=== PATIENT | female | born 1990 | race Caucasian/White ===

== ENCOUNTER 2019-05-08 07:30 | Observation (INO) | payer MEDICAID ==
[~2019-05-08] VITALS: Ht 172.7 cm; Wt 99.8 kg
[2019-05-08] MEDS ORDERED: ONDANSETRON HCL 4MG/2ML INJ IV ONE (08:15)
[2019-05-08] MEDS ORDERED: DEXT 5%/LACTATED RINGERS 1,000 ML IV SCH (08:15)
[2019-05-08 08:51] LABS: BASOPHILS % 0.1 % (0.0-2.0); HEMATOCRIT. 36.6 % (36.0-48.0); HEMOGLOBIN. 12.3 g/dL (12.0-16.0); LYMPHOCYTES % 12.1 % (20.0-50.0); MEAN CORPUSCULAR HEMOGLOBIN 27.8 pg (28.0-32.0); MEAN CORPUSCULAR VOLUME 82.4 fL (81.0-99.0); MEAN PLATELET VOLUME 8.2 fl (7.4-10.4); MONOCYTES % 4.1 % (2.0-8.0); NEUTROPHILS % 83.7 % (40.0-76.0); PLATELET 355 x1000/uL (130-400); RED BLOOD CELL COUNT 4.44 mill/uL (4.2-5.4); RED CELL DISTRIBUTION WIDTH 14.2 % (11.6-14.6)
[2019-05-08 08:55] LABS: CHLORIDE 102 mEq/L (98-107)
[2019-05-08 09:05] LABS: D-DIMER 1.91 mg/L FEU (<0.50); PROTHROMBIN TIME 9.9 sec (9.6-11.0)
[2019-05-08 11:25] LABS: HEPATITIS B SURFACE ANTIGEN NEGATIVE
== END 2019-05-08 10:00 | disposition home or self-care (01) ==
LOC: 8 EST LDRP 07:30
PROVIDERS: ADMIT Obstetrics & Gynecology; ATTEND Obstetrics & Gynecology
DX: O21.2 Late vomiting of pregnancy (principal); Z3A.32 32 weeks gestation of pregnancy
CPT/HCPCS: 36415; 80053; 84550; 85025; 85379; 85384; 85610; 85730; 86592; 86703; 86762; 86850; 86900; 86901; 87340; 96374; 99281; G0378; J2405; 96360; 96361

== ENCOUNTER 2019-06-15 22:50 | Inpatient (IN) | payer MEDICAID ==
[~2019-06-15] VITALS: Ht 172.7 cm; Wt 99.8 kg
[2019-06-16] MEDS: LACTATED RINGERS 1,000 ML IV SCH ×2 (00:26→01:16)
[2019-06-16 00:28] LABS: CLARITY URINE TURBID (CLEAR); COLOR URINE YELLOW (YELLOW); KETONES URINE NEGATIVE (NEGATIVE); LEUKOCYTE ESTERASE URINE TRACE (NEGATIVE); NITRITE URINE NEGATIVE (NEGATIVE); OCCULT BLOOD URINE NEGATIVE (NEGATIVE); PH URINE 6.5 (4.5-8.0); PROTEIN URINE NEGATIVE (NEGATIVE); SPECIFIC GRAVITY URINE 1.018 (1.005-1.030); UROBILINOGEN URINE 0.2 E.U./dL (0.2-1.0)
[2019-06-16] MEDS ORDERED: PNV1TABL59 PO (00:28)
[2019-06-16 00:33] LABS: CHLORIDE 109 mEq/L (98-107)
[2019-06-16 00:40] LABS: *AMPHETAMINES SCREEN URINE NEGATIVE (NEGATIVE); *BARBITURATES SCREEN URINE NEGATIVE (NEGATIVE); *BENZODIAZEPINES SCREEN URINE NEGATIVE (NEGATIVE); *COCAINE SCREEN URINE NEGATIVE (NEGATIVE); METHADONE URINE SCREEN NEGATIVE (NEGATIVE); OPIATES URINE SCREEN NEGATIVE (NEGATIVE)
[2019-06-16 00:40] LABS: BASOPHILS % 0.2 % (0.0-2.0); EOSINOPHILS % 0.2 % (0.0-5.0); HEMOGLOBIN. 12.6 g/dL (12.0-16.0); LYMPHOCYTES % 22.1 % (20.0-50.0); MEAN CORPUSCULAR HEMOGLOBIN 26.8 pg (28.0-32.0); MEAN CORPUSCULAR VOLUME 80.8 fL (81.0-99.0); MONOCYTES % 7.2 % (2.0-8.0); NEUTROPHILS % 70.3 % (40.0-76.0); PLATELET 354 x1000/uL (130-400); RED BLOOD CELL COUNT 4.71 mill/uL (4.2-5.4); RED CELL DISTRIBUTION WIDTH 14.3 % (11.6-14.6)
[2019-06-16 00:41] LABS: PHENCYCLIDINE URINE SCREEN NEGATIVE (NEGATIVE)
[2019-06-16 00:54] LABS: INR 0.9; PARTIAL THROMBOPLASTIN TIME 23.6 sec (23.4-31.0); PROTHROMBIN TIME 9.4 sec (9.6-11.0)
[2019-06-16 00:57] LABS: CANNABINOID URINE SCREEN PRESUMTIVE POSITIVE (NEGATIVE)
[2019-06-16] MEDS ORDERED: LACTATED RINGERS 1,000 ML IV SCH (01:33)
[2019-06-16] MEDS ORDERED: MAGNESIUM 4 G PREMIX 100 ML IV NR (01:45)
[2019-06-16] MEDS ORDERED: CARBOPROST TROMETHAMINE 250 MCG/ML AMPUL IM PRN (01:45)
[2019-06-16] MEDS ORDERED: MISOPROSTOL 100MCG TABLET VG SCH (01:45)
[2019-06-16] MEDS ORDERED: METHYLERGONOVINE MALEATE 0.2 MG/ML IM PRN (01:45)
[2019-06-16] MEDS ORDERED: NALOXONE HCL 0.4 MG/ML 1ML VIAL IM PRN (01:45)
[2019-06-16] MEDS ORDERED: HYDRALAZINE 20MG/ML VIAL IV PRN (01:45)
[2019-06-16] MEDS ORDERED: LABETALOL HCL 5MG/ML VIAL 20ML IV PRN ×3 (01:45)
[2019-06-16] MEDS ORDERED: CITRIC ACID/SODIUM CITRATE SOLN 30ML UDC PO ONE (02:15)
[2019-06-16] MEDS ORDERED: OXYTOCIN 10 UNITS/ML 1ML ONE (02:20)
[2019-06-16] MEDS ORDERED: EPHEDRINE SULFATE 50MG/ML VIAL ONE (02:20)
[2019-06-16] MEDS ORDERED: MORPHINE SULFATE/PF 1MG/ML 10ML AMP ONE (02:20)
[2019-06-16] MEDS ORDERED: ONDANSETRON HCL 4MG/2ML INJ ONE (02:20)
[2019-06-16] MEDS ORDERED: FENTANYL CITRATE/PF 50MCG/ML 2ML VIAL ONE (02:20)
[2019-06-16] MEDS ORDERED: CEFAZOLIN SODIUM 1000MG/VIAL ONE (02:20)
[2019-06-16] MEDS ORDERED: GLYCOPYRROLATE 0.2 MG/ML 2ML VIAL ONE (02:20)
[2019-06-16] MEDS ORDERED: METOCLOPRAMIDE HCL 10MG/2ML VIAL ONE (02:20)
[2019-06-16] MEDS: MAGNESIUM SULFATE 20 GM in DEXT 5% WATER 460 ML IV SCH (02:24)
[2019-06-16] MEDS ORDERED: SODIUM CHLORIDE 0.9% 10ML VIAL ONE (02:46)
[2019-06-16] MEDS ORDERED: MIDAZOLAM HCL 2 MG/2 ML VIAL ONE (03:27)
[2019-06-16 03:32] LABS: HEPATITIS B SURFACE ANTIGEN NEGATIVE
[2019-06-16] MEDS ORDERED: DIPHENHYDRAMINE 50MG/ML VIAL ONE (03:33)
[2019-06-16] MEDS ORDERED: KETOROLAC 60MG/2ML VIAL IM ONE (03:33)
[2019-06-16] MEDS ORDERED: BUTORPHANOL TARTRATE 2 MG/ML VIAL IV PRN (04:00)
[2019-06-16] MEDS ORDERED: DEXT 5%/LR + PITOCIN 20UNITS/L 1,000 ML IV SCH (04:01)
[2019-06-16] MEDS ORDERED: RHO(D) IMMUNE GLOBULIN 300 MCG/SYR IM PRN (04:15)
[2019-06-16] MEDS ORDERED: BISACODYL 10MG SUPP PR PRN (04:15)
[2019-06-16] MEDS ORDERED: IBUPROFEN 400MG TABLET PO PRN (04:15)
[2019-06-16] MEDS: DEXT 5%/LR + PITOCIN 20UNITS/L 1,000 ML IV SCH ×2 (04:24→16:06)
[2019-06-16] MEDS ORDERED: KETOROLAC 30MG/ML VIAL IV SCH (06:00)
[2019-06-16] MEDS: LABETALOL HCL 100MG TABLET PO SCH ×2 (09:21→21:17)
[2019-06-16] MEDS: DIPHENHYDRAMINE 50MG/ML VIAL IV PRN ×2 (09:23→16:18)
[2019-06-16] MEDS: KETOROLAC 30MG/ML VIAL IV SCH ×3 (10:00→22:01)
[2019-06-16 11:00] VITALS: BP 118/75
[2019-06-16 12:00] VITALS: BP 122/73
[2019-06-16 14:11] VITALS: BP 128/80
[2019-06-16 18:12] VITALS: BP 126/79
[2019-06-16 20:30] VITALS: BP 135/80
[2019-06-16 22:00] VITALS: BP 115/76
[2019-06-17] VITALS: BP 113/72
[2019-06-17 02:18] VITALS: BP 130/81
[2019-06-17] MEDS: MAGNESIUM SULFATE 20 GM in DEXT 5% WATER 460 ML IV SCH (02:44)
[2019-06-17 04:15] VITALS: BP 132/79
[2019-06-17 07:07] LABS: BASOPHILS % 0.1 % (0.0-2.0); EOSINOPHILS % 1.1 % (0.0-5.0); HEMATOCRIT. 28.6 % (36.0-48.0); HEMOGLOBIN. 9.7 g/dL (12.0-16.0); LYMPHOCYTES % 14.6 % (20.0-50.0); MEAN CORPUSCULAR VOLUME 80.1 fL (81.0-99.0); MEAN PLATELET VOLUME 7.9 fl (7.4-10.4); MONOCYTES % 6.6 % (2.0-8.0); NEUTROPHILS % 77.6 % (40.0-76.0); PLATELET 272 x1000/uL (130-400); RED BLOOD CELL COUNT 3.57 mill/uL (4.2-5.4); RED CELL DISTRIBUTION WIDTH 14.7 % (11.6-14.6)
[2019-06-17 07:45] VITALS: BP 116/74
[2019-06-17] MEDS: IBUPROFEN 800MG TABLET PO PRN ×2 (09:29→21:35)
[2019-06-17] MEDS: LABETALOL HCL 100MG TABLET PO SCH ×2 (09:29→21:30)
[2019-06-17 16:00] VITALS: BP 113/83
[2019-06-17 19:30] VITALS: BP 141/98
[2019-06-18] VITALS: BP_SYST 132; BP_SYST 96; BP_DIAS 54; BP_DIAS 89
[2019-06-18 04:00] VITALS: BP 137/96
[2019-06-18] MEDS: IBUPROFEN 800MG TABLET PO PRN ×2 (06:42→17:22)
[2019-06-18 07:45] VITALS: BP 137/99
[2019-06-18] MEDS: LABETALOL HCL 100MG TABLET PO SCH ×2 (08:21→21:04)
[2019-06-18 15:45] VITALS: BP 140/90
[2019-06-18 19:30] VITALS: BP 141/88
[2019-06-19 04:00] VITALS: BP 114/65
[2019-06-19] MEDS ORDERED: IBUP-2030 PO (07:58)
[2019-06-19 08:00] VITALS: BP 125/71
[2019-06-19] MEDS: IBUPROFEN 800MG TABLET PO PRN (08:24)
[2019-06-19] MEDS: LABETALOL HCL 100MG TABLET PO SCH (08:24)
[2019-06-19 13:00] VITALS: BP 118/68
[2019-06-20 06:09] LABS: CANNABINOID CONFIRMATION URINE Positive (.)
== END 2019-06-19 13:20 | disposition home or self-care (01) | DRG 540 ==
LOC: OBSVTOIN 22:50 → INTOOBSV 22:50 → 8 EST LDRP 22:50 → 8EST 06-16 14:03
PROVIDERS: ADMIT Obstetrics & Gynecology; ATTEND Obstetrics & Gynecology
PROC: 10D00Z1 Extraction of Products of Conception, Low, Open Approach (ICD-10-PCS; principal; 2019-06-16)
DX: O14.94 Unspecified pre-eclampsia, complicating childbirth (principal); O99.324 Drug use complicating childbirth; E66.9 Obesity, unspecified; O99.214 Obesity complicating childbirth; O34.211 Maternal care for low transverse scar from previous cesarean delivery; F12.10 Cannabis abuse, uncomplicated; D64.9 Anemia, unspecified; O90.81 Anemia of the puerperium; Z3A.37 37 weeks gestation of pregnancy; Z37.0 Single live birth
CPT/HCPCS: 36415; 76805; 76818; 80053; 80305; 80349; 81003; 83735; 84550; 85025; 85379; 85384; 86592; 86703; 86762; 86850; 86900; 86920; 87340; 88307; 99281; G0378; J0690; J1200; J1885; J2250; J2274; J2405; J2590; J2765; J3010; J3475; J3490; J7060; A4315